=== PATIENT | female | born 1970 | race Caucasian/White ===

== ENCOUNTER 2023-01-12 15:24 | Inpatient (IN) | payer OTHER ==
[2023-01-12 15:37] VITALS: BMI 50.5
[2023-01-12] MEDS ORDERED: LIDOCAINE 5% TOPICAL PATCH TP ONE (16:14)
[2023-01-12] MEDS ORDERED: ONDANSETRON 4 MG/2 ML VIAL IVPB ONE (16:14)
[2023-01-12] MEDS ORDERED: ACETAMINOPHEN 500 MG TABLET (FP) PO ONE (16:15)
[2023-01-12] MEDS ORDERED: ONDANSETRON 4 MG/2 ML VIAL ONE (16:52)
[2023-01-12] MEDS ORDERED: LIDOCAINE 5% TOPICAL PATCH ONE (16:52)
[2023-01-12] MEDS ORDERED: ACETAMINOPHEN 325 MG TABLET (FP) ONE (16:52)
[2023-01-12] MEDS ORDERED: ALBUTEROL SO4 2.5/IPRATROPIUM 0.5 INH SOL 3 ML VIAL.NEB. NEB ONE (17:00)
[2023-01-12 17:03] LABS: EOS % 3.4 % (0-4.5); HEMATOCRIT 38.5 % (32.4-45.2); HEMOGLOBIN 12.9 GM/dL (10.7-15.3); LYMPH % 18.3 % (8-40); MCH 31.3 pg (25.7-33.7); MCHC 33.6 g/dl (32.0-36.0); MEAN PLT VOLUME 11.2 fl (7.5-11.1); MONO % 7.2 % (3.8-10.2); NEUT % 70.1 % (42.8-82.8); PLATELET COUNT 180 10^3/uL (134-434); RBC 4.14 M/mm3 (3.60-5.2); RDW 13.9 % (11.6-15.6); VENOUS BASE EXCESS 5.9 mmol/L (-2-2); VENOUS O2 SATURATION 51.6 % (70-80); VENOUS PCO2 54.9 mmHg (38-52); VENOUS PH 7.389 (7.310-7.410); WHITE BLOOD COUNT 7.1 K/mm3 (4.0-10.0)
[2023-01-12] MEDS: ALBUTEROL SO4 2.5/IPRATROPIUM 0.5 INH SOL 3 ML VIAL.NEB. NEB SCH ×4 (17:09→18:39)
[2023-01-12 17:29] LABS: POTASSIUM 4.4 mmol/L (3.5-5.1)
[2023-01-12 17:32] LABS: ALBUMIN 3.6 g/dl (3.4-5.0); BLOOD UREA NITROGEN 17.6 mg/dL (7-18); CALCIUM 10.1 mg/dL (8.5-10.1)
[2023-01-12 17:36] LABS: CREATININE 1.4 mg/dL (0.55-1.3); PHOSPHOROUS 3.9 mg/dL (2.5-4.9); TOT PROT 7.9 g/dl (6.4-8.2)
[2023-01-12 17:38] LABS: BILIRUBIN,TOTAL 0.4 mg/dL (0.2-1)
[2023-01-12] MEDS ORDERED: SODIUM CHLORIDE 0.9% 500 ML INFUS.BAG IV ONE (18:12)
[2023-01-12] MEDS ORDERED: INSULIN (NOVOLOG) ASPART 100 UNITS/ML 10ML VIAL SQ ONE (18:39)
[2023-01-12 19:18] LABS: EPI CELLS 17 /uL (0-25.1); HYALINE CASTS 0 /uL (0-3.1); URINE APPEARANCE CLEAR; URINE BACTERIA >9,000 /uL (0-1359); URINE BILIRUBIN NEGATIVE (NEGATIVE); URINE COLOR YELLOW; URINE GLUCOSE (UA) 1+ (NEGATIVE); URINE KETONE TRACE (NEGATIVE); URINE LEUK ESTERASE NEGATIVE (NEGATIVE); URINE NITRITE NEGATIVE (NEGATIVE); URINE PROTEIN 2+ (NEGATIVE); URINE WBC 27 /uL (0-25.8)
[2023-01-12 20:38] LABS: URINE RBC 29.9 /uL (0-23.9)
[2023-01-12] MEDS ORDERED: LEVOTHYROXINE NA 25 MCG TABLET (FP) PO ONE (20:44)
[2023-01-12] MEDS ORDERED: LEVOTHYROXINE NA 150 MCG TABLET PO ONE (20:44)
[2023-01-12] MEDS ORDERED: LEVOTHYROXINE NA 100 MCG TABLET (FP) ONE (20:58)
[2023-01-12] MEDS ORDERED: LEVOTHYROXINE NA 75 MCG TABLET (FP) ONE (20:59)
[2023-01-12] MEDS ORDERED: INSULIN (NOVOLOG) ASPART 100 UNITS/ML 10ML VIAL ONE (22:19)
[2023-01-12] MEDS: INSULIN SLIDING SCALE (NOVOLOG) 1 VIAL SQ SCH (22:20)
[2023-01-12] MEDS: LIDOCAINE PATCH REMOVAL MC SCH (22:21)
[2023-01-13] MEDS ORDERED: INSULIN (NOVOLOG) ASPART 100 UNITS/ML 10ML VIAL ONE ×2 (06:09→22:56)
[2023-01-13] MEDS: INSULIN SLIDING SCALE (NOVOLOG) 1 VIAL SQ SCH ×3 (06:16→16:46)
[2023-01-13] MEDS ORDERED: LEVOTHYROXINE NA 150 MCG TABLET PO SCH (07:00)
[2023-01-13] MEDS ORDERED: LEVOTHYROXINE 100 MCG, LEVOTHYROXINE 75 MCG PO SCH (07:00)
[2023-01-13 07:50] LABS: BASO % 0.6 % (0-2.0); EOS % 4.1 % (0-4.5); HEMATOCRIT 39.4 % (32.4-45.2); HEMOGLOBIN 12.7 GM/dL (10.7-15.3); LYMPH % 17.3 % (8-40); MCH 30.8 pg (25.7-33.7); MCHC 32.3 g/dl (32.0-36.0); MEAN CELL VOLUME 95.3 fl (80-96); MEAN PLT VOLUME 11.8 fl (7.5-11.1); PLATELET COUNT 165 10^3/uL (134-434); RBC 4.14 M/mm3 (3.60-5.2); RDW 13.4 % (11.6-15.6); WHITE BLOOD COUNT 6.9 K/mm3 (4.0-10.0)
[2023-01-13 07:54] LABS: POTASSIUM 4.3 mmol/L (3.5-5.1)
[2023-01-13 07:56] LABS: ALBUMIN 3.4 g/dl (3.4-5.0); CALCIUM 9.4 mg/dL (8.5-10.1)
[2023-01-13 07:57] LABS: BLOOD UREA NITROGEN 14.1 mg/dL (7-18)
[2023-01-13 07:59] LABS: CREATININE 1.2 mg/dL (0.55-1.3)
[2023-01-13 08:02] LABS: BILIRUBIN,TOTAL 0.5 mg/dL (0.2-1); TOT PROT 7.2 g/dl (6.4-8.2)
[2023-01-13] MEDS ORDERED: AZITHROMYCIN IVPB 500 MG in DEXTROSE 5%-WATER - 250 ML IVPB SCH (11:15)
[2023-01-13] MEDS: methylPREDNISolone NA SUCC 40 MG/1 ML VIAL IVPUSH SCH ×2 (11:35→11:48)
[2023-01-13] MEDS: AZITHROMYCIN IVPB 500 MG/250 ML BAG IVPB SCH ×2 (11:36→11:49)
[2023-01-13] MEDS: BUDESONIDE/FORMETEROL FUMARATE 160/4.5 mcg INHALER IH SCH (14:08)
[2023-01-13] MEDS: LEVOTHYROXINE SODIUM 100 MCG 5 ML VIAL IVPUSH SCH (20:05)
[2023-01-13] MEDS: LIDOCAINE PATCH REMOVAL MC SCH (21:30)
[2023-01-14] MEDS: BUDESONIDE/FORMETEROL FUMARATE 160/4.5 mcg INHALER IH SCH ×4 (00:36→22:08)
[2023-01-14] MEDS: INSULIN SLIDING SCALE (NOVOLOG) 1 VIAL SQ SCH ×6 (00:36→22:07)
[2023-01-14] MEDS ORDERED: INSULIN (NOVOLOG) ASPART 100 UNITS/ML 10ML VIAL ONE ×3 (06:08→22:06)
[2023-01-14] MEDS: INSULIN (NOVOLOG MIX 70/30) 100 UNITS/ML MDV SQ SCH ×2 (06:44→17:23)
[2023-01-14 07:53] LABS: BASO % 0.8 % (0-2.0); EOS % 4.4 % (0-4.5); HEMATOCRIT 39.4 % (32.4-45.2); HEMOGLOBIN 13.1 GM/dL (10.7-15.3); LYMPH % 20.7 % (8-40); MCH 31.6 pg (25.7-33.7); MCHC 33.2 g/dl (32.0-36.0); MEAN CELL VOLUME 95.2 fl (80-96); MEAN PLT VOLUME 11.7 fl (7.5-11.1); MONO % 7.2 % (3.8-10.2); NEUT % 66.9 % (42.8-82.8); PLATELET COUNT 200 10^3/uL (134-434); RBC 4.13 M/mm3 (3.60-5.2); RDW 13.7 % (11.6-15.6); WHITE BLOOD COUNT 7.5 K/mm3 (4.0-10.0)
[2023-01-14 08:12] LABS: POTASSIUM 4.4 mmol/L (3.5-5.1)
[2023-01-14 08:20] LABS: BLOOD UREA NITROGEN 16.5 mg/dL (7-18)
[2023-01-14 08:21] LABS: ALBUMIN 3.6 g/dl (3.4-5.0); BILIRUBIN,TOTAL 0.6 mg/dL (0.2-1); CALCIUM 9.5 mg/dL (8.5-10.1); TOT PROT 7.9 g/dl (6.4-8.2)
[2023-01-14 08:23] LABS: CREATININE 1.2 mg/dL (0.55-1.3)
[2023-01-14] MEDS: LIOTHYRONINE SODIUM 5 MCG TABLET PO SCH (09:26)
[2023-01-14] MEDS: methylPREDNISolone NA SUCC 40 MG/1 ML VIAL IVPUSH SCH (09:31)
[2023-01-14] MEDS: LEVOTHYROXINE SODIUM 100 MCG 5 ML VIAL IVPUSH SCH (09:33)
[2023-01-14] MEDS: AZITHROMYCIN IVPB 500 MG/250 ML BAG IVPB SCH (09:33)
[2023-01-14] MEDS: LIDOCAINE PATCH REMOVAL MC SCH (22:03)
[2023-01-15] MEDS: INSULIN SLIDING SCALE (NOVOLOG) 1 VIAL SQ SCH ×4 (06:33→21:42)
[2023-01-15] MEDS: INSULIN (NOVOLOG MIX 70/30) 100 UNITS/ML MDV SQ SCH ×2 (06:33→18:02)
[2023-01-15] MEDS: LIOTHYRONINE SODIUM 5 MCG TABLET PO SCH (06:33)
[2023-01-15] MEDS ORDERED: LISINOPRIL 5 MG TABLET PO ONE (12:45)
[2023-01-15] MEDS ORDERED: INSULIN (NOVOLOG) ASPART 100 UNITS/ML 10ML VIAL ONE ×4 (13:39→21:31)
[2023-01-15] MEDS: methylPREDNISolone NA SUCC 40 MG/1 ML VIAL IVPUSH SCH (13:56)
[2023-01-15] MEDS: LEVOTHYROXINE SODIUM 100 MCG 5 ML VIAL IVPUSH SCH (13:56)
[2023-01-15] MEDS: BUDESONIDE/FORMETEROL FUMARATE 160/4.5 mcg INHALER IH SCH ×2 (14:10→21:44)
[2023-01-15] MEDS: AZITHROMYCIN IVPB 500 MG/250 ML BAG IVPB SCH (14:11)
[2023-01-15] MEDS: POLYETHYLENE GLYCOL (HEALTHYLAX) 3350 17 GM PACKET PO SCH ×2 (21:43→21:46)
[2023-01-15] MEDS: LIDOCAINE PATCH REMOVAL MC SCH (21:44)
[2023-01-16] MEDS ORDERED: diphenhydrAMINE HCL 25 MG CAPSULE (FP) PO ONE (02:56)
[2023-01-16] MEDS ORDERED: INSULIN (NOVOLOG) ASPART 100 UNITS/ML 10ML VIAL ONE ×2 (06:59→12:17)
[2023-01-16] MEDS: LIOTHYRONINE SODIUM 5 MCG TABLET PO SCH (07:02)
[2023-01-16] MEDS: INSULIN SLIDING SCALE (NOVOLOG) 1 VIAL SQ SCH ×4 (07:02→22:45)
[2023-01-16] MEDS: INSULIN (NOVOLOG MIX 70/30) 100 UNITS/ML MDV SQ SCH ×2 (07:02→17:14)
[2023-01-16] MEDS: POLYETHYLENE GLYCOL (HEALTHYLAX) 3350 17 GM PACKET PO SCH ×3 (10:30→22:44)
[2023-01-16] MEDS: methylPREDNISolone NA SUCC 40 MG/1 ML VIAL IVPUSH SCH (10:31)
[2023-01-16] MEDS: LEVOTHYROXINE SODIUM 100 MCG 5 ML VIAL IVPUSH SCH (10:31)
[2023-01-16] MEDS: AZITHROMYCIN IVPB 500 MG/250 ML BAG IVPB SCH (10:31)
[2023-01-16] MEDS: BUDESONIDE/FORMETEROL FUMARATE 160/4.5 mcg INHALER IH SCH ×2 (10:32→22:44)
[2023-01-16] MEDS: LISINOPRIL 5 MG TABLET PO SCH (12:18)
[2023-01-16 12:43] LABS: CALCIUM 9.4 mg/dL (8.5-10.1)
[2023-01-16 12:44] LABS: ALBUMIN 3.4 g/dl (3.4-5.0); BLOOD UREA NITROGEN 18.5 mg/dL (7-18)
[2023-01-16 12:45] LABS: CREATININE 1.1 mg/dL (0.55-1.3)
[2023-01-16 12:47] LABS: BILIRUBIN,TOTAL 0.7 mg/dL (0.2-1); TOT PROT 7.8 g/dl (6.4-8.2)
[2023-01-16] MEDS: ALBUTEROL SO4 0.083% IH SOL 2.5 MG/3 ML VIAL.NEB. NEB PRN (20:47)
[2023-01-16] MEDS: LIDOCAINE PATCH REMOVAL MC SCH (22:45)
[2023-01-17] MEDS: INSULIN (NOVOLOG MIX 70/30) 100 UNITS/ML MDV SQ SCH ×2 (06:54→19:03)
[2023-01-17] MEDS: LIOTHYRONINE SODIUM 5 MCG TABLET PO SCH (06:54)
[2023-01-17] MEDS: INSULIN SLIDING SCALE (NOVOLOG) 1 VIAL SQ SCH ×4 (06:55→22:53)
[2023-01-17] MEDS: methylPREDNISolone NA SUCC 40 MG/1 ML VIAL IVPUSH SCH (09:53)
[2023-01-17] MEDS: LEVOTHYROXINE SODIUM 100 MCG 5 ML VIAL IVPUSH SCH ×2 (09:53→16:09)
[2023-01-17] MEDS: LISINOPRIL 5 MG TABLET PO SCH (09:54)
[2023-01-17] MEDS: CHOLECALCIFEROL (VIT D3) 1,000 UNIT (25 MCG) TABLET PO SCH (09:54)
[2023-01-17] MEDS: BUDESONIDE/FORMETEROL FUMARATE 160/4.5 mcg INHALER IH SCH ×2 (09:54→22:57)
[2023-01-17] MEDS: POLYETHYLENE GLYCOL (HEALTHYLAX) 3350 17 GM PACKET PO SCH ×2 (09:54→22:50)
[2023-01-17] MEDS: AZITHROMYCIN IVPB 500 MG/250 ML BAG IVPB SCH (09:54)
[2023-01-17] MEDS: LIDOCAINE PATCH REMOVAL MC SCH (22:53)
[2023-01-17 23:07] LABS: ALPHA 2 MACROGLOBULINS,QN 207 mg/dL (110-276); ALT(SGPT)P5P 141 IU/L (0-40); APOLIPOPROTEIN A-1. 137 mg/dL (116-209); CHOLESTEROL TOTAL 274 mg/dL (100-199); GLUCOSE SERUM 164 mg/dL (70-99)
[2023-01-18] MEDS ORDERED: LIOTHYRONINE SODIUM 5 MCG TABLET PO SCH (07:00)
[2023-01-18] MEDS: LIOTHYRONINE SODIUM 25 MCG TABLET PO SCH (07:45)
[2023-01-18] MEDS: LEVOTHYROXINE SODIUM 100 MCG 5 ML VIAL IVPUSH SCH (07:45)
[2023-01-18] MEDS: INSULIN (NOVOLOG MIX 70/30) 100 UNITS/ML MDV SQ SCH ×2 (07:48→17:21)
[2023-01-18] MEDS: INSULIN SLIDING SCALE (NOVOLOG) 1 VIAL SQ SCH ×4 (07:49→21:33)
[2023-01-18] MEDS: POLYETHYLENE GLYCOL (HEALTHYLAX) 3350 17 GM PACKET PO SCH ×2 (11:22→21:23)
[2023-01-18] MEDS: LISINOPRIL 5 MG TABLET PO SCH (11:22)
[2023-01-18] MEDS: methylPREDNISolone NA SUCC 40 MG/1 ML VIAL IVPUSH SCH (11:22)
[2023-01-18] MEDS: BUDESONIDE/FORMETEROL FUMARATE 160/4.5 mcg INHALER IH SCH ×2 (11:22→21:24)
[2023-01-18] MEDS: CHOLECALCIFEROL (VIT D3) 1,000 UNIT (25 MCG) TABLET PO SCH (12:12)
[2023-01-18] MEDS: LIDOCAINE PATCH REMOVAL MC SCH (21:26)
[2023-01-18] MEDS ORDERED: INSULIN (NOVOLOG) ASPART 100 UNITS/ML 10ML VIAL ONE (21:31)
[2023-01-18] MEDS: ALBUTEROL SO4 0.083% IH SOL 2.5 MG/3 ML VIAL.NEB. NEB PRN (21:39)
[2023-01-19] MEDS ORDERED: INSULIN (NOVOLOG) ASPART 100 UNITS/ML 10ML VIAL ONE ×2 (06:37→12:46)
[2023-01-19] MEDS: INSULIN SLIDING SCALE (NOVOLOG) 1 VIAL SQ SCH ×4 (06:40→23:00)
[2023-01-19] MEDS: INSULIN (NOVOLOG MIX 70/30) 100 UNITS/ML MDV SQ SCH ×2 (06:40→17:00)
[2023-01-19] MEDS: ALBUTEROL SO4 0.083% IH SOL 2.5 MG/3 ML VIAL.NEB. NEB PRN (07:15)
[2023-01-19] MEDS: LIOTHYRONINE SODIUM 25 MCG TABLET PO SCH (07:19)
[2023-01-19] MEDS: LEVOTHYROXINE SODIUM 100 MCG 5 ML VIAL IVPUSH SCH (07:19)
[2023-01-19 08:01] LABS: POTASSIUM 4.6 mmol/L (3.5-5.1)
[2023-01-19 08:32] LABS: BLOOD UREA NITROGEN 26.6 mg/dL (7-18)
[2023-01-19 08:35] LABS: CREATININE 1.2 mg/dL (0.55-1.3)
[2023-01-19] MEDS: BUDESONIDE/FORMETEROL FUMARATE 160/4.5 mcg INHALER IH SCH ×2 (10:52→23:00)
[2023-01-19] MEDS: POLYETHYLENE GLYCOL (HEALTHYLAX) 3350 17 GM PACKET PO SCH ×2 (10:52→23:00)
[2023-01-19] MEDS: methylPREDNISolone NA SUCC 40 MG/1 ML VIAL IVPUSH SCH (10:52)
[2023-01-19] MEDS: LISINOPRIL 5 MG TABLET PO SCH (10:52)
[2023-01-19] MEDS: CHOLECALCIFEROL (VIT D3) 1,000 UNIT (25 MCG) TABLET PO SCH (10:52)
[2023-01-19] MEDS: POTASSIUM CHLORIDE 10 MEQ in SODIUM CHLORIDE 0.45% 1,000 ML IVPB SCH (10:52)
[2023-01-19] MEDS: LIDOCAINE PATCH REMOVAL MC SCH (23:00)
[2023-01-20] MEDS: LIOTHYRONINE SODIUM 25 MCG TABLET PO SCH (06:50)
[2023-01-20] MEDS: LEVOTHYROXINE SODIUM 100 MCG 5 ML VIAL IVPUSH SCH (06:54)
[2023-01-20] MEDS: INSULIN SLIDING SCALE (NOVOLOG) 1 VIAL SQ SCH ×3 (07:09→17:17)
[2023-01-20] MEDS: INSULIN (NOVOLOG MIX 70/30) 100 UNITS/ML MDV SQ SCH ×2 (07:28→17:16)
[2023-01-20] MEDS: LISINOPRIL 5 MG TABLET PO SCH (09:58)
[2023-01-20] MEDS: POTASSIUM CHLORIDE 10 MEQ in SODIUM CHLORIDE 0.45% 1,000 ML IVPB SCH (09:58)
[2023-01-20] MEDS: methylPREDNISolone NA SUCC 40 MG/1 ML VIAL IVPUSH SCH (09:58)
[2023-01-20] MEDS: POLYETHYLENE GLYCOL (HEALTHYLAX) 3350 17 GM PACKET PO SCH ×2 (09:58→23:05)
[2023-01-20] MEDS: CHOLECALCIFEROL (VIT D3) 1,000 UNIT (25 MCG) TABLET PO SCH (09:59)
[2023-01-20] MEDS: BUDESONIDE/FORMETEROL FUMARATE 160/4.5 mcg INHALER IH SCH ×2 (09:59→23:06)
[2023-01-20] MEDS: LIDOCAINE PATCH REMOVAL MC SCH (23:06)
[2023-01-21] MEDS: INSULIN SLIDING SCALE (NOVOLOG) 1 VIAL SQ SCH ×5 (06:58→23:13)
[2023-01-21] MEDS: INSULIN (NOVOLOG MIX 70/30) 100 UNITS/ML MDV SQ SCH ×2 (07:00→17:29)
[2023-01-21] MEDS: LEVOTHYROXINE SODIUM 100 MCG 5 ML VIAL IVPUSH SCH (07:06)
[2023-01-21] MEDS: LIOTHYRONINE SODIUM 25 MCG TABLET PO SCH (07:07)
[2023-01-21] MEDS: BUDESONIDE/FORMETEROL FUMARATE 160/4.5 mcg INHALER IH SCH ×2 (09:30→23:26)
[2023-01-21] MEDS: POLYETHYLENE GLYCOL (HEALTHYLAX) 3350 17 GM PACKET PO SCH ×2 (09:31→23:13)
[2023-01-21] MEDS: methylPREDNISolone NA SUCC 40 MG/1 ML VIAL IVPUSH SCH ×2 (09:32→09:38)
[2023-01-21] MEDS: LISINOPRIL 5 MG TABLET PO SCH (09:32)
[2023-01-21] MEDS: CHOLECALCIFEROL (VIT D3) 1,000 UNIT (25 MCG) TABLET PO SCH (09:32)
[2023-01-21] MEDS: POTASSIUM CHLORIDE 10 MEQ in SODIUM CHLORIDE 0.45% 1,000 ML IVPB SCH (13:53)
[2023-01-21] MEDS ORDERED: INSULIN (NOVOLOG) ASPART 100 UNITS/ML 10ML VIAL ONE (22:57)
[2023-01-22] MEDS: LIDOCAINE PATCH REMOVAL MC SCH (00:19)
[2023-01-22] MEDS ORDERED: INSULIN (NOVOLOG) ASPART 100 UNITS/ML 10ML VIAL ONE (07:03)
[2023-01-22] MEDS: LIOTHYRONINE SODIUM 25 MCG TABLET PO SCH (07:58)
[2023-01-22] MEDS: LEVOTHYROXINE SODIUM 100 MCG 5 ML VIAL IVPUSH SCH (07:59)
[2023-01-22] MEDS: INSULIN SLIDING SCALE (NOVOLOG) 1 VIAL SQ SCH ×2 (07:59→12:17)
[2023-01-22] MEDS: INSULIN (NOVOLOG MIX 70/30) 100 UNITS/ML MDV SQ SCH (07:59)
[2023-01-22 08:13] LABS: POTASSIUM 4.7 mmol/L (3.5-5.1)
[2023-01-22 08:16] LABS: CALCIUM 9.6 mg/dL (8.5-10.1)
[2023-01-22 08:17] LABS: BLOOD UREA NITROGEN 20.5 mg/dL (7-18)
[2023-01-22 08:19] LABS: ALBUMIN 3.6 g/dl (3.4-5.0)
[2023-01-22 08:26] LABS: BILIRUBIN,TOTAL 0.8 mg/dL (0.2-1); TOT PROT 7.8 g/dl (6.4-8.2)
[2023-01-22] MEDS ORDERED: AMOX TR/POT CLAV 875MG/125MG TABLETS (FP) PO SCH (09:15)
[2023-01-22] MEDS: LISINOPRIL 5 MG TABLET PO SCH (09:57)
[2023-01-22] MEDS: CHOLECALCIFEROL (VIT D3) 1,000 UNIT (25 MCG) TABLET PO SCH (09:57)
[2023-01-22] MEDS: POLYETHYLENE GLYCOL (HEALTHYLAX) 3350 17 GM PACKET PO SCH (09:57)
[2023-01-22] MEDS: methylPREDNISolone NA SUCC 40 MG/1 ML VIAL IVPUSH SCH (09:57)
[2023-01-22] MEDS: POTASSIUM CHLORIDE 10 MEQ in SODIUM CHLORIDE 0.45% 1,000 ML IVPB SCH (10:01)
[2023-01-22] MEDS: BUDESONIDE/FORMETEROL FUMARATE 160/4.5 mcg INHALER IH SCH (10:01)
[2023-01-22 11:25] VITALS: PULSE 84
[2023-01-22 15:21] VITALS: BP 124/61; RESP 22; TEMP 98.8
== END 2023-01-22 15:45 | disposition home or self-care (01) | DRG 144 ==
LOC: JER 15:24 → INTOOBSV 19:28 → JERBED 19:28 → J4W 21:21 → UNDODISOB 01-17 19:42 → OBSVTOIN 01-18 10:16
PROVIDERS: ADMIT Internal Medicine; ATTEND Family Medicine
DX: J20.9 Acute bronchitis, unspecified (principal); E11.40 Type 2 diabetes mellitus with diabetic neuropathy, unspecified; J44.0 Chronic obstructive pulmonary disease with (acute) lower respiratory infection; E11.65 Type 2 diabetes mellitus with hyperglycemia; J45.901 Unspecified asthma with (acute) exacerbation; E66.2 Morbid (severe) obesity with alveolar hypoventilation; E87.1 Hypo-osmolality and hyponatremia; Z68.43 Body mass index [BMI] 50.0-59.9, adult; E03.9 Hypothyroidism, unspecified; N39.0 Urinary tract infection, site not specified; R00.1 Bradycardia, unspecified; R80.9 Proteinuria, unspecified; Z91.148 Patient's other noncompliance with medication regimen for other reason; R74.01 Elevation of levels of liver transaminase levels; E55.9 Vitamin D deficiency, unspecified; K76.0 Fatty (change of) liver, not elsewhere classified
CPT/HCPCS: 36415; 71045-TC-FY; 76705-TC; 80048; 80053; 80061; 81003; 82306; 82550; 82553; 82570; 82607; 82728; 82746; 82803; 82962; 82977; 83036; 83516; 83540; 83550; 83690; 83735; 83880; 84100; 84156; 84439; 84443; 84484; 85025; 86038; 86704; 86706; 86708; 86803; 87086; 87186; 87340; 87517; 93005; 93010; 93306-TC; 94640; 94660; 99285-25; G0378